=== PATIENT | male | born 1950 | race Caucasian/White ===

== ENCOUNTER 2024-12-21 07:06 | Day surgery (SDC) | payer OTHER ==
[2024-12-19 12:05] VITALS: BMI 31.7
[2024-12-21] MEDS ORDERED: TRYPAN BLUE 0.5 ML DISP.SYRIN ONE (07:16)
[2024-12-21] MEDS ORDERED: LIDOCAINE 1% P/F 10 MG/ML VIAL ONE (07:16)
[2024-12-21] MEDS ORDERED: EPINEPHrine 1:1000 P/F - 1 MG/ML AMP ONE (07:16)
[2024-12-21] MEDS ORDERED: CARBACHOL 0.01% INTRA-OCULAR 1.5 ML VIAL ONE (07:17)
[2024-12-21] MEDS ORDERED: BSS (NA/CA/MG/K) BALANCED SALT SOLUTION OPHTH SOLN 15 ML BOTTLE ONE ×2 (07:17→07:31)
[2024-12-21] MEDS ORDERED: NEO/POLYMYX B SULF/DEXAMETH OPHTHALMIC 5ML BOTTLE ONE (07:17)
[2024-12-21] MEDS ORDERED: TETRACAINE 0.5% OPHTH SOLN 2 ML BOTTLE ONE (07:17)
[2024-12-21] MEDS: CIPROFLOXACIN 0.3% EYE DROPS 5 ML BOTTLE ONE (07:30)
[2024-12-21] MEDS: PHENYLEPHRINE 2.5% OPTHALMIC DROP 2ML BOTTLE ONE (07:30)
[2024-12-21] MEDS: TROPICAMIDE 1% 3 ML EYE DROPS ONE (07:30)
[2024-12-21] MEDS: CYCLOPENTOLATE 2% OPHTH SOLN 2 ML BOTTLE ONE (07:30)
[2024-12-21] MEDS ORDERED: MIDAZOLAM HCL 2 MG/2 ML SINGLE DOSE VIAL ONE (08:29)
[2024-12-21 10:03] VITALS: TEMP 97.9
[2024-12-21 10:06] VITALS: BP 138/68; PULSE 62; RESP 19
== END 2024-12-21 10:10 | disposition home or self-care (01) ==
LOC: FASU 07:06
PROVIDERS: ATTEND Ophthalmology
PROC: 08RJ3JZ Replacement of Right Lens with Synthetic Substitute, Percutaneous Approach (ICD-10-PCS; principal; 2024-12-21 09:23)
DX: H26.8 Other specified cataract (principal)
CPT/HCPCS: 66984; V2632; 82962